=== PATIENT | male | born 1995 | race Caucasian/White ===

== ENCOUNTER 2020-10-06 09:18 | Day surgery (SDC) | payer OTHER, SELFPAY ==
[~2020-10-06] VITALS: Ht 177.8 cm; Wt 107.1 kg
[~2020-10-06 09:18] MED LIST: No Historical Meds
[2020-10-06] MEDS ORDERED: APAP325T4 PO (09:35)
[2020-10-06 10:02] LABS: BASO % 0.3 % (0.0-1.0); EOS # 0.2 10^3/uL (0.0-0.5); EOS % 1.3 % (0.0-3.0); HEMATOCRIT 51.9 % (42.0-52.0); HEMOGLOBIN 17.8 g/dl (13.5-17.5); LYMPH # 1.9 10^3/uL (1.5-5.0); LYMPH % 13.5 % (24.0-44.0); MEAN CORPUSCULAR HEMOGLOBIN 29.8 pg (27.0-33.0); MEAN CORPUSCULAR HGB CONC 34.3 g/dl (32.0-36.5); MEAN CORPUSCULAR VOLUME 86.8 fl (80.0-96.0); MONO # 0.8 10^3/uL (0.0-0.8); NEUTROPHILS # 11.1 10^3/uL (1.5-8.5); NEUTROPHILS % 78.4 % (36.0-66.0); PLATELET COUNT, AUTOMATED 300 10^3/uL (150-450); RED BLOOD COUNT 5.98 10^6/uL (4.30-6.10); WHITE BLOOD COUNT 14.1 10^3/uL (4.0-10.0)
[2020-10-06 10:23] LABS: ALBUMIN 4.3 GM/DL (3.2-5.2); ALT/SGPT 76 U/L (12-78); BILIRUBIN,DIRECT 0.3 MG/DL (0.0-0.2); BILIRUBIN,TOTAL 1.8 MG/DL (0.2-1.0); BLOOD UREA NITROGEN 13 MG/DL (7-18); CALCIUM LEVEL 9.5 MG/DL (8.5-10.1); CARBON DIOXIDE LEVEL 31 MEQ/L (21-32); CHLORIDE LEVEL 100 MEQ/L (98-107); CREATININE FOR GFR 0.98 MG/DL (0.70-1.30); GLOMERULAR FILTRATION RATE > 60.0 (>60); GLUCOSE, FASTING 103 MG/DL (70-100); LIPASE 40 U/L (73-393); SODIUM LEVEL 135 MEQ/L (136-145); TOTAL PROTEIN 8.1 GM/DL (6.4-8.2)
[2020-10-06] MEDS ORDERED: NS 1,000 ML IV SCH (10:35)
[2020-10-06] MEDS ORDERED: ISOVUE-370 76% 100ML VIAL As Ordered ONE (10:50)
--- NOTE | 2020-10-06 11:22 | REP ---
INDICATION: abd pain r/o appendicits. COMPARISON: None TECHNIQUE: Axial contrast-enhanced images from the lung bases to the pubic symphysis using 100 cc Isovue 370 intravenous contrast material. Coronal and sagittal reformations obtained. This CT examination was performed using the following dose reduction techniques: Automated exposure control, adjustment of mA and/or kv according to the patient's size, and the use of iterative reconstruction technique. FINDINGS: The appendix demonstrates mild enhancement with mild adjacent stranding and measures up to 9 mm diameter suggesting early acute appendicitis. Remainder of the small and large bowel is grossly unremarkable. Liver demonstrates fatty infiltration without focal hepatic lesion. Spleen, pancreas, gallbladder, bilateral adrenal glands and kidneys are normal. Pelvis demonstrates normal bladder and age-appropriate prostate/seminal vesicles. No ascites. No free air. No significant adenopathy. Abdominal aorta and vasculature without aneurysm or dissection. Musculoskeletal structures are intact. IMPRESSION: Findings compatible with early acute appendicitis. <Electronically signed by Gibran Kellogg > 10/06/20 0214
[2020-10-06] MEDS ORDERED: PIPERACILLIN/TAZOBACTAM SOD 3.375 GM in D5W MINI-BAG PLUS 50 ML IV ONE (11:35)
[2020-10-06] MEDS ORDERED: ACET-683 PO (11:47)
--- NOTE | 2020-10-06 12:11 | HPEPDOC ---
General Surgery H&P Date of Admission Oct 06, 2020 Attending Physician: YOSI INFANTE MD History and Physical CHIEF COMPLAINT: right side abdominal pain HISTORY OF PRESENT ILLNESS: Healthy 25 M presents to the ED with 2 day history of abdominal pain. Reports pain started yesterday was not severe. This about level of 5 out of 10. This has been persistent and constant overnight. Located over the right lower quadrant with radiation to the right lateral abdominal wall, slightly exacerbated with movement. Denies nausea or vomiting though he did try to induce vomiting hoping this will make him feel more comfortable. Denies fevers or chills or sick contacts. With the persistence of pain he presented himself to the emergency department at about 9 in the morning today. He was evaluated and was found to have evidence for acute appendicitis. ALLERGIES: Please see below. HOME MEDICATIONS: Please see below. PAST MEDICAL HISTORY: 1.no chronic medical problems PAST SURGICAL HISTORY: 1.right leg fx - nonoperative PERSONAL/SOCIAL HISTORY: reports smoking 10 cigs/day, occasional alcohol intake, denies recreational drug use REVIEW OF SYSTEMS: GENERAL: Denies chills, fatigue, fever, weight gain and weight loss. HEENT: Denies vision problems or hearing problems. NECK: Denies any neck pain. CARDIOVASCULAR: Denies chest pain and palpitations. MUSCULOSKELETAL: Denies arthralgias, back pain and thrombophlebitis. SKIN: Denies rash. NEUROLOGIC: Denies headache, stroke and transient ischemic attack. PSYCHIATRIC: Denies anxiety and depression. ENDOCRINE: Denies thyroid disease. HEMATOLOGY/ONCOLOGY: Denies any bleeding or clotting disorder. HEART: Denies any chest pains, palpitations, paroxysmal dyspnea, orthopnea. PULMONARY: Denies chronic cough, dyspnea and wheezing. GASTROINTESTINAL: See HPI. GENITOURINARY: Denies dysuria, frequency, hematuria and nocturia. ENDOCRINE: Denies polydipsia, polyphagia, polyuria, heat or cold intolerance. INFECTIOUS: Denies any recent upper respiratory tract infection, UTI, need for use of antibiotics. NUTRITION: Reports good appetite. PHYSICAL EXAMINATION: VITAL SIGNS: Please see below. GENERAL APPEARANCE: Patient seen, relatively comfortable. Awake, alert, orie nted. HEENT: Normocephalic, atraumatic. [place] palpebral conjunctivae. Anicteric sclerae. Lips moist. CHEST: No chest wall abnormalities. Normal respiratory motion/effort. NECK: Supple. No thyromegaly. No lymphadenopathies. LUNGS: Lung sounds are clear to auscultation bilaterally. No wheezing a ppreciated. HEART: No chest wall abnormalities. Heart rate and rhythm are regular with no murmurs. ABDOMEN: [Abdomen is mildly obese, soft, nondistended. No umbilical or groin herniations. Tender to palpation over the right lower quadrant area with localized guarding. Mild Rovsing sign. SKIN: Warm and dry. EXTREMITIES: Extremities have no deformities. No edema identified. NEUROLOGICAL: Awake alert and oriented ANCILLARIES: . LABORATORY DATA: Please see below. MICROBIOLOGY: Please see below. IMAGING: CT abdomen and pelvis The appendix demonstrates mild enhancement with mild adjacent stranding and measures up to 9 mm diameter suggesting early acute appendicitis. Remainder of the small and large bowel is grossly unremarkable. IMPRESSION AND PLAN: Acute appendicitis with localized peritonitis Patient's history, physical examination and workup consistent with acute appendicitis with localized peritonitis on examination. No severe systemic inflammatory response associated with this. He has some mild leukocytosis. We'll bring him to the operating room for laparoscopic appendectomy.I discussed with the patient the details of the proposed procedure, the benefits of performing the procedure, the most common risks on doing the procedure. This may include risks for bleeding, infection, injury to nearby bowels, blood vessels. I have given him a chance to ask questions, voice out concerns. Patient has agreed to proceed He has been given a dose of Zosyn 3.5 g IV during seen emergency room. I will decide later on antibiotics but he needs further doses depending on intraoperative findings. Vital Signs Vital Signs Date Time Temp Pulse Resp B/P (MAP) Pulse Ox O2 Delivery O2 Flow Rate FiO2 10/06/20 11:14 10/06/20 09:19 97.7 86 18 99 Room Air Laboratory Data Labs 24H Laboratory Tests 2 10/06/20 09:41: Immature Granulocyte % (Auto) 0.5, Neutrophils (%) (Auto) 78.4H, Lymphocytes (%) (Auto) 13.5L, Monocytes (%) (Auto) 6.0, Eosinophils (%) (Auto) 1.3, Basophils (%) (Auto) 0.3, Neutrophils # (Auto) 11.1H, Lymphocytes # (Auto) 1.9, Monocytes # (Auto) 0.8, Eosinophils # (Auto) 0.2, Basophils # (Auto) 0.0, Nucleated Red Blood Cells % (auto) 0.0, Urine Color YELLOW, Urine Appearance CLEAR, Urine pH 6.0, Urine Specific [place] 1.029, Urine Protein 1+H, Urine Glucose (UA) NEGATIVE, Urine Ketones NEGATIVE, Urine Blood NEGATIVE, Urine Nitrite NEGATIVE, Urine Bilirubin NEGATIVE, Urine Urobilinogen 0.2, Urine Leukocyte Esterase NEGATIVE, Urine WBC (Auto) 1, Urine RBC (Auto) 2, Urine Hyaline Casts (Auto) 0, Urine Bacteria (Auto) NEGATIVE, Urine Squamous Epithelial Cells 0, Urine Mucus (Auto) SMALL, Urine Sperm (Auto) , Anion Gap 4L, Glomerular Filtration Rate > 60.0, Calcium Level 9.5, Total Bilirubin 1.8H, Direct Bilirubin 0.3H, Aspartate Amino Transf (AST/SGOT) 33, Alanine Aminotransferase (ALT/SGPT) 76, Alkaline Phosphatase 79, Total Protein 8.1, Albumin 4.3, Albumin/Globulin Ratio 1.1, Lipase 40L 10/06/20 11:47: CBC/BMP Laboratory Tests 10/06/20 09:41 Home Medications Scheduled PRN Acetaminophen (Acetaminophen) 500 Mg Tablet, 1,000 MG PO Q6H PRN for PAIN, (Reported) Allergies Coded Allergies: No Known Allergies (Unverified , 10/06/20) A-FIB/CHADSVASC A-FIB History Current/History of A-Fib/PAF?: No Current PO Anticoag Therapy: YOSI Palmer MD Oct 06, 2020 12:11
[2020-10-06 12:41] LABS: RSV AMPLIFICATION NEGATIVE (NEGATIVE)
[2020-10-06] MEDS ORDERED: MIDAZOLAM INJ 2MG/2ML VIAL (J2250 PER 1MG) As Ordered ONE (13:37)
[2020-10-06] MEDS ORDERED: fentaNYL 100 MCG/2 ML INJECTION (J3010) As Ordered ONE (13:37)
[2020-10-06] MEDS ORDERED: propofoL 200 MG/20 ML VIAL As Ordered ONE ×2 (13:38→14:18)
[2020-10-06] MEDS ORDERED: ROCURONIUM BROMIDE 50 MG/5 ML VIAL As Ordered ONE (13:38)
[2020-10-06] MEDS ORDERED: LIDOCAINE 1% SDV 30ML VIAL As Ordered ONE (13:39)
[2020-10-06] MEDS ORDERED: BUPIVACAINE HCL 0.25% 30ML VIAL As Ordered ONE (13:39)
[2020-10-06] MEDS ORDERED: LIDOCAINE 2% 100MG/5ML SDV (FOR ANES.) As Ordered ONE (13:39)
[2020-10-06] MEDS ORDERED: dexameTHASONE 4 MG/ML 1ML VIAL (J1100 PER 1MG) As Ordered ONE (13:47)
[2020-10-06] MEDS ORDERED: KETOROLAC 60MG 2ML VIAL As Ordered ONE (13:47)
[2020-10-06] MEDS: LR 1,000 ML IV SCH (15:30)
[2020-10-06] MEDS ORDERED: PERCOCET 5MG/325MG TAB PO PRN (15:40)
[2020-10-06] MEDS ORDERED: KETOROLAC 30 MG/ML 1ML VIAL IV PRN (15:40)
[2020-10-06] MEDS ORDERED: fentaNYL 100 MCG/2 ML INJECTION (J3010) IV PRN (15:50)
[2020-10-06] MEDS ORDERED: oxyCODONE 5MG TAB PO PRN (15:50)
[2020-10-06] MEDS ORDERED: LR 1,000 ML IV SCH (15:50)
[2020-10-06] MEDS ORDERED: ONDANSETRON 4MG/2ML VIAL IV PRN (15:50)
--- NOTE | 2020-10-06 16:28 | ROOPDOC ---
[facility] Report Of Operation Report of Operation DATE OF PROCEDURE: 10/06/20 PREPROCEDURE DIAGNOSES: acute appendicitis. POSTPROCEDURE DIAGNOSES: acute appendicitis. PROCEDURE: Laparoscopic appendectomy. SURGEON: Dago Smith MD STATE ATTORNEY: ANESTHESIA: General Endotracheal Anesthesia. ESTIMATED BLOOD LOSS: Approximately 10 mL. SPECIMEN: Appendix COMPLICATIONS: none. REMARKS: Healthy 25 M with 2 day history of abdominal pain on the right side secondary to acute appendicitis. PROCEDURE NOTE: retrocecal appendix, thickened appendix throughout its course with small amount of exudates on the wall. No gross perforation, abscess DESCRIPTION OF PROCEDURE: Patient has been given a dose of Zosyn perioperatively during his presentation to the ED.Patient was brought to the operating room, placed supine on the table. Sequential compression device placed for DVT prophylaxis. General endotracheal anesthesia started. The abdomen prepped and draped in usual sterile fashion. After a surgical timeout, we began our surgery Entry into the abdomen done through an incision at the 2 cms above the umbilicus. Veress needle inserted on a controlled fashion. Intra-abdominal placement confirmed with saline drop technique. CO2 insufflation started to a pressure of 15 mmHg. Using the same incision a 5 mm port was placed under direct vision of laparoscope. Insertion site was inspected for injury and none was found. He was placed on a Trendelenburg position the right side tilted to about 30 to allow for better visualization of the appendix. Two 5 mm working ports were placed at the suprapubic area and left lower quadrant area under direct vision, an 8 mm port exchanged at the umbilical camera port site. Operative findings: The cecum is distracted medially to expose the appendix which takes a retrocecal course. The visible portion of the appendix is thickened with exudates at the distal portion. No obvious necrotic wall or perforation noted, minimal reactive fluid noted at the right gutter. The lateral attachments of the cecum to the abdominal is divided for medial retraction to expose the course of the appendix. The fibrous attachments of the appendix to the colon and surrounding tissues are also divided with the harmonic scalpel to better visualize its course. The appendix was grasped to pull the base of the appendix into view. The mesoappendix was divided using Harmonic scalpel down to the base. Two PDS Endoloops were placed to ligate the appendix at its base then divided with a Harmonic Scalpel the stump cauterized. Stump appears healthy. Appendix was then delivered into an Endo Catch bag through the 8 mm umbilical port site. . After re-insufflation the surgical site was inspected for hemostasis, the visualized fluid collections irrigated and suctioned off until clear return. Surrounding areas of the abdomen and inspected for fluid collections or signs of injury. The abdomen was deflated. All ports removed. The umbilical fascial defect repaired with 0 Vicryl in a mattress fashion. All skin incisions closed with 4-0 Monocryl in a subcuticular fashion. Steri-Strips and gauze dressing used for wound coverage. Patient was promptly awake and extubated and brought to recovery room stable. All counts of sponges and instruments verified to be correct. DAGO SMITH MD Oct 06, 2020 16:28
[2020-10-06 16:45] VITALS: BP 139/92
[2020-10-06] MEDS ORDERED: AMPICILLIN SOD/SULBACTAM SOD 3 GM in D5W MINI-BAG PLUS 100 ML IV SCH (17:00)
[2020-10-06 17:15] VITALS: BP 143/91
[2020-10-06 18:15] VITALS: BP 152/85
[2020-10-06] MEDS: AMPICILLIN SOD/SULBACTAM SOD 3 GM in D5W MINI-BAG PLUS 100 ML IV SCH (18:22)
[2020-10-06 19:15] VITALS: BP 149/84
[2020-10-06 20:15] VITALS: BP 143/87
[2020-10-06 21:15] VITALS: BP 142/82
[2020-10-07] MEDS: LR 1,000 ML IV SCH ×2 (00:37→09:25)
[2020-10-07] MEDS: AMPICILLIN SOD/SULBACTAM SOD 3 GM in D5W MINI-BAG PLUS 100 ML IV SCH ×2 (00:37→06:42)
[2020-10-07 02:00] VITALS: BP 112/66
[2020-10-07 07:59] LABS: BASO % 0.1 % (0.0-1.0); EOS % 0.1 % (0.0-3.0); HEMATOCRIT 43.1 % (42.0-52.0); LYMPH # 1.6 10^3/uL (1.5-5.0); LYMPH % 15.8 % (24.0-44.0); MEAN CORPUSCULAR HGB CONC 34.8 g/dl (32.0-36.5); MEAN CORPUSCULAR VOLUME 86.2 fl (80.0-96.0); MONO # 0.7 10^3/uL (0.0-0.8); MONO % 6.7 % (2.0-8.0); NEUTROPHILS % 76.9 % (36.0-66.0); PLATELET COUNT, AUTOMATED 252 10^3/uL (150-450); WHITE BLOOD COUNT 10.4 10^3/uL (4.0-10.0)
[2020-10-07 08:22] LABS: BLOOD UREA NITROGEN 11 MG/DL (7-18); C REACTIVE PROTEIN QUANTITATIV 2.12 MG/DL (0.00-0.30); CALCIUM LEVEL 8.3 MG/DL (8.5-10.1); CARBON DIOXIDE LEVEL 26 MEQ/L (21-32); CHLORIDE LEVEL 104 MEQ/L (98-107); CREATININE FOR GFR 0.83 MG/DL (0.70-1.30); GLOMERULAR FILTRATION RATE > 60.0 (>60); GLUCOSE, FASTING 112 MG/DL (70-100); POTASSIUM SERUM 3.6 MEQ/L (3.5-5.1); SODIUM LEVEL 137 MEQ/L (136-145)
[2020-10-07] MEDS ORDERED: PERCOCET PO (10:10)
== END 2020-10-07 10:45 | disposition home or self-care (01) ==
LOC: M ED 09:18 → M SDC 09:19 → M ED 13:51 → M MS5PR 16:35 → M SDC 10-07 10:45
PROVIDERS: ATTEND Surgery
DX: K35.890 Other acute appendicitis without perforation or gangrene (principal); F17.218 Nicotine dependence, cigarettes, with other nicotine-induced disorders
CPT/HCPCS: 36415; 44970; 74177; 80048; 80076; 81001; 83690; 85025; 86140; 87631; 88304; 96361; 96365; 96366; 99284; J1100; J1885; J2250; J2543; J3010; Q9967

== ENCOUNTER → 2025-01-19 | Outpatient (REF) | payer OTHER ==
[~2025-01-19] MED LIST changes: +ACET-683 PO; +APAP325T4 PO; +PERCOCET PO
[2025-01-19 12:44] LABS: BASO # 0.0 10^3/uL (0.0-0.2); BASO % 0.4 % (0.0-1.0); EOS # 0.2 10^3/uL (0.0-0.5); EOS % 3.8 % (0.0-3.0); LYMPH # 1.6 10^3/uL (1.5-5.0); LYMPH % 28.8 % (24.0-44.0); MONO # 0.3 10^3/uL (0.0-0.8); MONO % 6.2 % (2.0-8.0); NEUTROPHILS # 3.3 10^3/uL (1.5-8.5); NEUTROPHILS % 60.6 % (36.0-66.0); PLATELET COUNT, AUTOMATED 286 10^3/uL (150-450)
[2025-01-19 12:50] LABS: ALT/SGPT 28 U/L (7.0-40); AST/SGOT 19 U/L (<34); CALCIUM LEVEL 9.3 MG/DL (8.5-10.1); CARBON DIOXIDE LEVEL 25 MMOL/L (20-31); CHLORIDE LEVEL 104 MMOL/L (98-107); CREATININE FOR GFR 0.90 MG/DL (0.70-1.30); FREE T4 1.15 NG/DL (0.89-1.76); GLOMERULAR FILTRATION RATE > 90.0 (>60); POTASSIUM SERUM 4.6 MMOL/L (3.5-5.1); SODIUM LEVEL 141 MMOL/L (136-145)
[2025-01-19 13:05] LABS: ESTIMATED AVERAGE GLUCOSE 97.0 MG/DL (60-110)
== END ==
LOC: M SFHCCLAY 09:06
PROVIDERS: ATTEND Nurse Practitioner Family
DX: Z00.00 Encounter for general adult medical examination without abnormal findings (principal); F41.9 Anxiety disorder, unspecified